=== PATIENT | female | born 1965 | race Caucasian/White ===

== ENCOUNTER → 2019-03-11 | Outpatient (CLI) | payer MEDICARE, MEDICAID | LOC: CARD 10:18 | PROVIDERS: ATTEND Registered Nurse | DX: I11.9 Hypertensive heart disease without heart failure (principal); R60.9 Edema, unspecified | CPT/HCPCS: 93306 ==

== ENCOUNTER 2019-06-08 13:40 | Outpatient (CLI) | payer MEDICARE, MEDICAID | END 2019-06-08 14:20 | disposition home or self-care (01) | LOC: SLEEP 13:40 | PROVIDERS: ATTEND Surgery | DX: G47.33 Obstructive sleep apnea (adult) (pediatric) (principal); I10 Essential (primary) hypertension; F34.9 Persistent mood [affective] disorder, unspecified ==

== ENCOUNTER → 2019-06-14 | Outpatient (CLI) | payer MEDICARE, MEDICAID ==
[~2019-06-14] VITALS: Ht 157 cm; Wt 136.0 kg
[~2019-06-14] MED LIST: CATHETER FLUSH 10 ML SYR IV PRN; REGADENOSON 0.4 MG/5 ML SYR (LEXISCAN) IV ONE
[2019-06-14 09:29] VITALS: BP 156/54
[2019-06-14 09:32] VITALS: BP 102/67
--- NOTE | 2019-06-14 17:24 | STRESS TEST ---
DATE OF SERVICE: 06/14/2019 LEXISCAN MYOVIEW STRESS TEST REPORT REFERRING PHYSICIAN: [facility] [place]. Baseline heart rate is 66. Baseline blood pressure 156/54. Baseline EKG is sinus rhythm with no ischemic changes. In summary, the patient was injected with 10.97 mCi of technetium-99 Myoview and the resting images were obtained. Then, the patient received 0.4 mg of Lexiscan followed by 33.0 mCi of technetium-99 Myoview. Throughout the test, there were no EKG changes. The resting and stress images were reviewed and compared in the short axis, horizontal long axis, and vertical long axis views. Review of the images showed breast attenuation with decreased uptake including the apex, anteroapical, inferoapical and inferolateral wall with reversible ischemia. SSS is 10, SDS 10, TID value 0.97. On the gated images, the left ventricle appeared to be normal size with normal contractility. Calculated ejection fraction 78%. CONCLUSION: 1. The patient tolerated Lexiscan well. 2. Breast attenuation affecting the quality of the images with questionable ischemia involving the apex, anteroapical and inferoapical segment and inferolateral wall. 3. Normal left ventricular size with normal contractility. Calculated ejection fraction 78%. Job ID: [id number] DocumentID: [id number] Dictated Date: 06/14/2019 16:27:27 Meat Dresser Date: 06/14/2019 17:23:47 Dictated By: HERNANDEZ GONZALES MD
== END ==
LOC: CARD 07:39
PROVIDERS: ATTEND Internal Medicine Cardiovascular Disease
DX: I11.9 Hypertensive heart disease without heart failure (principal); E78.2 Mixed hyperlipidemia; R06.09 Other forms of dyspnea
CPT/HCPCS: 78452; 93017

== ENCOUNTER 2019-06-30 06:48 | Day surgery (SDC) | payer MEDICARE, MEDICAID ==
[~2019-06-30] VITALS: Ht 160 cm; Wt 134.0 kg
[2019-06-30] VITALS (8 sets, daily range): BP systolic 130–165; BP diastolic 62–84
[2019-06-30] MEDS ORDERED: HEParin (CATH LAB) 2,000 ML IV ONE (06:52)
[2019-06-30] MEDS ORDERED: NS IV 1000 ML 1,000 ML ONE (06:52)
[2019-06-30] MEDS ORDERED: LIDOCAINE 1% INJ 20 ML 20 ML VIAL ONE (06:52)
[2019-06-30] MEDS ORDERED: NS IV 1000 ML 1,000 ML IV SCH ×2 (07:00→09:07)
[2019-06-30] MEDS ORDERED: fentaNYL INJECTION 100 MCG/2 ML AMP ONE (07:43)
[2019-06-30] MEDS ORDERED: MIDAZOLAM 5 MG/5 ML (VERSED) VIAL ONE (07:43)
[2019-06-30 07:45] LABS: HEMOGLOBIN 11.9 G/DL (11.5-16.0); MEAN PLATELET VOLUME 11.2 FL (7.4-10.4); RED CELL DISTRIBUTION WIDTH 14.2 % (10.0-14.5); WHITE BLOOD COUNT 8.4 10^3/uL (4.3-11.0)
[2019-06-30] MEDS ORDERED: LEVO125T6 PO (07:56)
[2019-06-30] MEDS ORDERED: ALEN70TA2 PO (07:56)
[2019-06-30] MEDS ORDERED: ACET-790 PO ×3 (07:56→08:17)
[2019-06-30] MEDS ORDERED: CHOL200014 PO (07:56)
[2019-06-30] MEDS ORDERED: GABA-488 PO ×2 (07:56)
[2019-06-30] MEDS ORDERED: FURO-125 PO (07:56)
[2019-06-30] MEDS ORDERED: DICL75TA2 PO (07:56)
[2019-06-30] MEDS ORDERED: MULT1TAB69 PO (07:56)
[2019-06-30] MEDS ORDERED: SERT100T8 PO (07:56)
[2019-06-30] MEDS ORDERED: NF-ESOM40C PO (07:56)
[2019-06-30] MEDS ORDERED: TRM50T PO (07:56)
[2019-06-30] MEDS ORDERED: TIZA4TAB4 PO (07:56)
[2019-06-30] MEDS ORDERED: LISI10TA2 PO (07:56)
[2019-06-30] MEDS ORDERED: PRAZ1CAP2 PO (07:56)
[2019-06-30] MEDS ORDERED: BUPR150T14 PO (07:56)
[2019-06-30] MEDS ORDERED: ROSU5TAB13 PO (07:56)
[2019-06-30 07:57] LABS: BILIRUBIN,URINE NEGATIVE (NEGATIVE); CLARITY,URINE CLEAR; COLOR,URINE YELLOW; GLUCOSE, URINE (UA) NEGATIVE (NEGATIVE); KETONES,URINE NEGATIVE (NEGATIVE); LEUKOCYTE ESTERASE ,URINE NEGATIVE (NEGATIVE); NITRITE,URINE NEGATIVE (NEGATIVE); PH,URINE 8.5 (5-9); PROTEIN,URINE NEGATIVE (NEGATIVE)
[2019-06-30 07:58] LABS: PROTHROMBIN TIME PATIENT 13.1 SEC (12.2-14.7)
[2019-06-30 08:06] LABS: ALANINE AMINOTRANSFERASE 17 U/L (0-55); ALBUMIN 3.9 GM/DL (3.2-4.5); ALKALINE PHOSPHATASE 63 U/L (40-136); BILIRUBIN,TOTAL 0.3 MG/DL (0.1-1.0); BUN/CREATININE RATIO 18; CARBON DIOXIDE 27 MMOL/L (21-32); CHLORIDE 104 MMOL/L (98-107); CHOLESTEROL 150 MG/DL (< 200); CREATININE SERUM 0.83 MG/DL (0.60-1.30); GFR ESTIMATED > 60; GLUCOSE 76 MG/DL (70-105); HDL CHOLESTEROL 64 MG/DL (40-60); POTASSIUM 4.8 MMOL/L (3.6-5.0); SODIUM 141 MMOL/L (135-145); TOTAL PROTEIN 7.7 GM/DL (6.4-8.2); TRIGLYCERIDES 64 MG/DL (<150); VLDL CHOLESTEROL 13 MG/DL (5-40)
--- NOTE | 2019-06-30 08:08 | Cardiac Procedure Note-CS/ASA ---
Pre-Procedure Note Pre-Op Procedure Note H&P Reviewed The H&P was reviewed, patient examined and no changes noted. Date H&P Reviewed: Jun 30, 2019 Time H&P Reviewed: 08:08 Conscious Sedation Pre-Proced Time 08:08 ASA Score 3 For ASA 3 and 4: Consider anesthesia and medical clearance. Also, for patients with a history of failed moderate sedation consider anesthesia. Airway Lungs Heart ASA score ASA 1: a normal healthy patient ASA 2: a patient with a mild systemic disease (mid diabetes, controlled hypertension, obesity x ASA 3: a patient with a severe systemic disease that limits activity (angina, COPD, prior Myocardial infarction) ASA 4: a patient with an incapacitating disease that is a constant threat to life (CHF, renal failure) ASA 5: a moribund patient not expected to survive 24 hrs. (ruptured aneurysm) ASA 6: a declared brain- patient whose organs are being harvested. For emergent operations, add the letter E after the classification Mallampati Classification Grade 3 Sedation Plan Analgesia, Amnesia, Plan communicated to team members, Discussed options with patient/fam, Discussed risks with patient/fam The patient is an appropriate candidate to undergo the planned procedure, sedation, and anesthesia. The patient immediately re-assessed prior to indication. HERNANDEZ GONZALES MD Jun 30, 2019 08:08
[2019-06-30 08:12] LABS: BACTERIA,URINE MODERATE /HPF; WBC,URINE 0-2 /HPF
[2019-06-30] MEDS ORDERED: VERAPAMIL 5 MG/2 ML (CALAN) VIAL IV ONE (08:14)
[2019-06-30] MEDS ORDERED: HEParin 1000 UNIT/ML (10ML VIAL) FOR BOLUS ONE (08:14)
[2019-06-30] MEDS ORDERED: QUET50TA PO (08:15)
[2019-06-30] MEDS ORDERED: NITRO DRIP 25000 MCG/D5W 250 ML IV ONE (08:15)
[2019-06-30] MEDS ORDERED: PRAZ2CAP2 PO (08:15)
--- NOTE | 2019-06-30 08:17 | Diagnostic Imaging Report ---
INDICATION: Shortness of breath and heart disease. FINDINGS: There is cardiomegaly. There may be some minimal venous congestion. There is no pleural effusion or pneumothorax. Mediastinum is unremarkable. IMPRESSION: Cardiomegaly and some questionable minimal central pulmonary venous congestion. Dictated by: Dictated on workstation # [id number]
--- NOTE | 2019-06-30 09:12 | Discharge Inst-Post CATH ---
Discharge Inst-CATH/EP Problems Reviewed?: Yes Post Cardiac Cath/EP D/C Inst Follow Up/Plan Appointment with Dr. Tamez's office in 4 weeks <b>CARDIAC CATH/EP PROCEDURE DISCHARGE INSTRUCTIONS</b> ACTIVITY * Go Home directly and rest. * Limit activity of the leg (or wrist if it was used) for 7 days including aerobics, swimming, jogging, bicycling, etc. * Restrict stair-climbing for 7 days if possible, if not, climb up with your non-cath leg, then bring together on the same step. * Avoid lifting, pushing, pulling or excessive movement of the affected extremity for 7 days. * Customary sexual activity may be resumed after 2 days-use caution not to use a position that strains or causes pain to the affected extremity. * No driving for 24 hours. * NO SMOKING. * Avoid straining for bowel movements for 7 days. * Gentle walking on level ground is allowed. * Returning to work will depend on the type of procedure and the results. Your doctor will discuss this with you. CALL YOUR DOCTOR FOR ANY OF THE FOLLOWING: *If bleeding from the puncture site occurs- Apply gentle pressure to site with clean cloth and call your doctor or EMS. * If a knot or lump forms under the skin, increases in size, or causes pain. * If bruising appears to be worsening or moving further down your leg instead of disappearing. * Temperature above 101 F. CARE OF YOUR GROIN INCISION; * Bruising or purple discoloration of the skin near the puncture site is common. * You may shower only, no bathtub bathing for 5 days. Be careful to avoid slipping as your leg may feel stiff. * If a closure device was used on your femoral artery, please see the attached guide regarding care of the device and your leg. * Leave dressing on FOR 24 hours. CARE OF YOUR WRIST INCISION; * Bruising or purple discoloration of the skin near the puncture site is common. * You may shower. * DO NOT submerge wrist. * Leave dressing on FOR 24 hours. HERNANDEZ TAMEZ MD Jun 30, 2019 09:12
--- NOTE | 2019-06-30 09:15 | Cardiac Cath Report ---
Cardiac Cath Report Physician (s)/Mandrel Puller (s) Physician HERNANDEZ GONZALES MD Pre-Procedure Diagnosis Pre-Procedure Diagnosis: coronary artery disease Post-Procedure Note Procedure Start Date: Jun 30, 2019 Name of Procedure: left heart catheterization Findings/Procedure Note PROCEDURE NOTE: 53-year-old lady with history of hypertension, hyperlipidemia, morbid obesity, has been having chest pain or shortness of breath, had an abnormal stress test, scheduled for cardiac catheterization possible PTCA. After explaining the procedure to the patient, all pros and cons were explained, all questions were answered. The patient signed the consent and then she was placed on the cardiac catheterization laboratory. Groin was prepped SL fashion local anesthesia was used. Sheath placed in the right radial artery, [place] catheter was used advanced to the left ventricular cavity then intubated the right coronary artery and angina gram was done, I was unable to access the left system, I exchanged the catheter into Kathy catheter and advanced to the to the left system, angiogram was done. no left ventriculogram was done, pressure was measured At the end of the procedure the sheath was removed. vascular band was used FINDINGS: Hemodynamics LV 99/11, end-diastolic pressure of 11 Aorta 95/58 mean of 64 ANATOMY: Left Main is free of obstructive disease Left Anterior Descending is smaller artery with mild disease nonobstructive Left Circumflex is large dominant artery with no obstructive disease Right Coronory Artery is nondominant artery with mild disease LV Gram was not done, pressure was measured CONCLUSION: 1. Dominant circumflex system, small LAD system with mild disease nonobstructive disease 2. Normal left ventricular end-diastolic pressure DISCUSSION AND RECOMMENDATION: medical therapy is recommended no intervention is needed, abnormal stress test is probably due to extracardiac attenuation Anesthesia Type: Conscious Sedation Estimated blood loss (mL): 10 ml Contrast Amount: 35 ml Total Radiation Dose: 382 mGy Post-Procedure Diagnosis Post-operative diagnosis: chest pain Shortness of breath Coronary artery disease Hypertension HERNANDEZ GONZALES MD Jun 30, 2019 09:15
--- NOTE | 2019-06-30 09:37 | NUR ---
SPOKE WITH THE PT(SHE DID NOT HAVE HER HOME MEDS BUT DID HAVE A LIST), WENT THRU HER LIST AND THE LIST ON HER CATH CHART WELL CALLING HEATHER TO COMPLETE THE MED REC. PT WAS ABLE TO TELL ME HOW/WHEN SHE TAKES EACH MEDICATION. THE FOLLOWING ARE FILL DATES FROM HEATHER: 03-21-2019 ESOMEPRAZOLE 40MG #90/90DS 04-09-2019 TIZANIDINE 4MG #270/90DS 04-26-2019 GABAPENTIN 300MG #450/90DS 05-03-2019 LISINOPRIL 10MG #90/90DS 05-03-2019 LEVOTHYROXINE 125MCG #90/90DS 05-14-2019 FUROSEMIDE 20MG #90/90DS 05-21-2019 PRAZOSIN 2MG #30/30DS 05-21-2019 TRAMADOL 50MG #180/30DS 06-01-2019 DICLOFENAC 75MG #60/30DS 06-11-2019 QUETIAPINE 50MG #60/30DS 06-11-2019 BUPROPION SR 150MG #60/30DS 06-14-2019 TYLENOL 4 #120/30DS 06-15-2019 SERTRALINE 100MG #45-30DS 06-17-2019 ROSUVASTATIN 5MG #30/30DS 06-17-2019 ALENDRONATE 70MG #/DS OTC MEDS: LILI PARRISH D
== END 2019-06-30 11:45 | disposition home or self-care (01) ==
LOC: CATH 06:48 → SDC 09:18 → CATH 11:45
PROVIDERS: ATTEND Internal Medicine Cardiovascular Disease
DX: I25.10 Atherosclerotic heart disease of native coronary artery without angina pectoris (principal); I10 Essential (primary) hypertension; E78.2 Mixed hyperlipidemia; E03.9 Hypothyroidism, unspecified; J44.9 Chronic obstructive pulmonary disease, unspecified; E66.01 Morbid (severe) obesity due to excess calories; F32.9 Major depressive disorder, single episode, unspecified; F41.9 Anxiety disorder, unspecified; Z68.43 Body mass index [BMI] 50.0-59.9, adult; Z79.899 Other long term (current) drug therapy; Z82.49 Family history of ischemic heart disease and other diseases of the circulatory system; Z80.9 Family history of malignant neoplasm, unspecified
CPT/HCPCS: 36415; 71045; 80053; 80061; 81000; 85027; 85610; 85730; 87081; 93458

== ENCOUNTER → 2020-09-12 | Outpatient (CLI) | payer MEDICARE, MEDICAID ==
[~2020-09-12] MED LIST changes: +ACET-790 PO; +ALEN70TA2 PO; +BUPR150T14 PO; -CATHETER FLUSH 10 ML SYR IV PRN; +CHOL200014 PO; +DICL75TA2 PO; +FURO-125 PO; +GABA-488 PO; +LEVO125T6 PO; +LISI10TA25 PO; +MULT-567 PO; +NF-ESOM40C PO; +PRAZ1CAP2 PO; +PRAZ2CAP2 PO; +QUET50TA PO; -REGADENOSON 0.4 MG/5 ML SYR (LEXISCAN) IV ONE; +ROSU5TAB13 PO; +SERT-414 PO; +TIZA4TAB4 PO; +TRM50T PO
--- NOTE | 2020-09-13 13:28 | Diagnostic Imaging Report ---
INDICATION: Routine screening. COMPARISON: 12/11/2017 and 12/05/2016. TECHNIQUE: 2D and 3D bilateral screening mammography was performed with CAD. FINDINGS: Scattered fibroglandular densities are identified bilaterally. Benign calcifications in the left breast are noted. No mass or malignant appearing microcalcifications are seen. The axillae are unremarkable. IMPRESSION: No mammographic features suspicious for malignancy are identified. ACR BI-RADS Category 2: Benign findings. Result letter will be mailed to the patient. Note: At least 10% of breast cancer is not imaged by mammography. Dictated by: Dictated on workstation # [id number]
== END ==
LOC: RAD 13:15
PROVIDERS: ATTEND Nurse Practitioner Family
DX: Z12.31 Encounter for screening mammogram for malignant neoplasm of breast (principal)
CPT/HCPCS: 77063; 77067